=== PATIENT | female | born 1985 ===

== ENCOUNTER 2018-01-07 12:21 | Inpatient (IN) | payer OTHER ==
[2018-01-07 12:15] VITALS: BP 111/59
[2018-01-07 12:47] VITALS: BP 106/63
[2018-01-07 13:02] VITALS: BP 109/67
[2018-01-07 13:17] VITALS: BP 108/72
[2018-01-07 13:45] LABS: BASOPHIL (%) 0.2 % (0-1); EOSINOPHIL (%) 0.2 % (0-5); HEMATOCRIT 34.7 % (36.0-46.0); HEMOGLOBIN 12.3 G/DL (11.9-15.5); IMMATURE GRANULOCYTE (%) 0.7 % (0.0-0.7); LYMPHOCYTE (%) 8.1 % (15-42); LYMPHOCYTE COUNT 1.3 K/uL (1.0-2.8); MCH 32.3 PG (29.0-34.0); MCHC 35.4 G/DL (30.0-36.0); MCV 91.1 FL (83-99); MONOCYTE (%) 5.3 % (3-12); MONOCYTE COUNT 0.9 K/uL (0-0.8); NEUTROPHIL (%) 85.5 % (45-76); NEUTROPHIL COUNT 13.8 K/uL (1.8-6.4); PLATELET COUNT 139 K/uL (156-360); RBC DIS.WIDTH-CV 12.2 % (11.8-14.6); RED BLOOD COUNT 3.81 M/uL (3.80-5.20); WHITE BLOOD COUNT 16.2 K/uL (4.1-10.2)
[2018-01-07 14:25] VITALS: BP 106/62
[2018-01-07] MEDS ORDERED: NEURONTIN300 MG PO (14:28)
[2018-01-07] MEDS ORDERED: ABILIFY MAINTE300 MG IM (14:29)
[2018-01-07 15:27] LABS: AMPHETAMINE NEGATIVE (500 ng/mL); BARBITURATES NEGATIVE (200 ng/mL); BENZODIAZEPINES NEGATIVE (150 ng/mL); BUPRENORPHINE NEGATIVE (10 ng/mL); COCAINE NEGATIVE (150 ng/mL); METHADONE NEGATIVE (200 ng/mL); METHAMPHETAMINE NEGATIVE (500 ng/mL); OPIATES (MORPHINE) NEGATIVE (100 ng/mL); OXYCODONE NEGATIVE (100 ng/mL); PHENCYCLIDINE NEGATIVE (25 ng/mL); PROPOXYPHENE NEGATIVE (300 ng/mL); THC CANNABINOIDS NEGATIVE (50 ng/mL); TRICYCLIC ANTIDEPRESSANTS NEGATIVE (300 ng/mL)
[2018-01-07 23:05] VITALS: BP 101/53
[2018-01-08 05:52] LABS: BASOPHIL (%) 0.3 % (0-1); EOSINOPHIL COUNT 0.1 K/uL (0-0.3); HEMATOCRIT 33.1 % (36.0-46.0); HEMOGLOBIN 11.2 G/DL (11.9-15.5); IMMATURE GRANULOCYTE (%) 0.3 % (0.0-0.7); LYMPHOCYTE (%) 21.4 % (15-42); LYMPHOCYTE COUNT 2.5 K/uL (1.0-2.8); MCH 31.4 PG (29.0-34.0); MCHC 33.8 G/DL (30.0-36.0); MCV 92.7 FL (83-99); MONOCYTE COUNT 0.9 K/uL (0-0.8); PLATELET COUNT 142 K/uL (156-360); RBC DIS.WIDTH-CV 12.4 % (11.8-14.6); RED BLOOD COUNT 3.57 M/uL (3.80-5.20); WHITE BLOOD COUNT 11.6 K/uL (4.1-10.2)
[2018-01-08 07:53] VITALS: BP 98/53
[2018-01-08 15:11] VITALS: BP 107/68
[2018-01-08] MEDS ORDERED: IBUPROFEN800 MG PO (15:53)
== END 2018-01-08 19:45 | disposition home or self-care (01) | DRG 769 ==
LOC: LDRP-OP 12:21 → 2WEST 12:22
PROVIDERS: Advanced Practice Midwife
PROC: 10D17Z9 Manual Extraction of Products of Conception, Retained, Via Natural or Artificial Opening (ICD-10-PCS; principal; 2018-01-07)
DX: Z39.0 Encounter for care and examination of mother immediately after delivery (principal)
CPT/HCPCS: 85025